=== PATIENT | male | born 2000 | race African-American/Black ===

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

== ENCOUNTER 2020-05-20 14:48 | Inpatient (IN) | payer OTHER ==
[~2020-05-20] VITALS: Ht 185.4 cm; Wt 81.6 kg
[~2020-05-20 14:48] MED LIST: ACETAMINOPHEN325 M1 PER TUBE; BUDESONIDE0.5 MG/2 M INH; CARDURA2 MG PER TUBE; DIVALPROEX SOD125 M1 PER TUBE; DIVALPROEX SOD125 MG PER TUBE; FAMOTIDINE 20 M20 MG PER TUBE; FLONASE 0.05%50 MCG NASAL; IPRAT-ALBUT 0.5-3 ML INH; LOPRESSOR50 MG PER TUBE; LORAZEPAM 2MG TA2 M1 PER TUBE; LORAZEPAM I2 MG/1 M2 PER TUBE; MIRALAX17 G1 PER TUBE; OXCARBAZEPINE300 MG PO; TRAMADOL 50 MG50 MG PER TUBE; TRANSDERM-SCOP1 EACH TRANSDERM; VISTARIL 25 MG25 M1 PER TUBE; XARELTO10 M1 PER TUBE
[2020-05-20 14:49] VITALS: BP 123/90
[2020-05-20 16:35] LABS: ABSOLUTE NEUTROPHILS 5.4 thou/uL (1.4-8.2); BASOPHILS 1.6 % (0.0-2.0); EOSINOPHILS 5.1 % (0.0-3.0); HEMATOCRIT 46.9 % (42.0-52.0); HEMOGLOBIN 15.6 gm/dL (14.0-18.0); LYMPHOCYTES 24.5 % (24.0-44.0); MCHC 33.2 g/dL (28.0-37.0); MCV 93.4 fL (80.0-100.0); MONOCYTES 10.8 % (1.0-8.0); PLATELET COUNT 332 thou/uL (150-400); RBC 5.02 mil/uL (4.50-6.00); RDW 14.1 % (10.5-14.5); WBC 9.4 thou/uL (4.0-11.0)
[2020-05-20 16:54] LABS: URINE BILIRUBIN 1+ (Negative); URINE BLOOD NEGATIVE (Negative); URINE CLARITY CLEAR; URINE COLOR YELLOW; URINE GLUCOSE-RANDOM* NEGATIVE (Negative); URINE KETONES 2+ (Negative); URINE LEUKOCYTES-REFLEX NEGATIVE (Negative); URINE NITRITE-REFLEX NEGATIVE (Negative); URINE PROTEIN (DIPSTICK) NEGATIVE (Negative); URINE SPECIFIC GRAVITY >= 1.030 (1.005-1.035); URINE UROBILINOGEN 0.2 E.U./dl (0.2-1.0)
[2020-05-20 17:06] LABS: SQUAMOUS None Seen /LPF (0-3)
[2020-05-20 17:07] LABS: BACTERIA-REFLEX 1-9 Few /HPF (None Seen); CASTS None Seen /LPF (None Seen); CRYSTALS None Seen /LPF (None Seen); URINE RBC None Seen /HPF (0-2); URINE WBC-REFLEX 0-5 Rare /HPF (0-5)
[2020-05-20 17:10] LABS: AMP/METHAMP Negative (Negative); BARBITURATES Negative (Negative); BENZODIAZEPINES Negative (Negative); COCAINE Negative (Negative); METHADONE Negative (Negative); OPIATES Negative (Negative); PCP Negative (Negative)
[2020-05-20 17:32] LABS: ANION GAP 21 mmol/L (7-16); BUN 20 mg/dL (7-18); CALCIUM 10.1 mg/dL (8.5-10.1); CHLORIDE 102 mmol/L (98-107); CO2 17 mmol/L (21-32); CREATININE 1.2 mg/dL (0.7-1.3); GLUCOSE 103 mg/dL (74-106); POTASSIUM 4.4 mmol/L (3.5-5.1); SODIUM 140 mmol/L (136-145)
[2020-05-20 17:39] LABS: ALBUMIN 4.4 g/dL (3.4-5.0); SALICYLATE < 2.8 mg/dL (2.8-20.0); SGOT 60 U/L (15-37); SGPT 48 U/L (16-63); TOTAL BILIRUBIN 0.5 mg/dL (0.2-1.0); TOTAL PROTEIN 8.4 g/dL (6.4-8.2)
[2020-05-21 07:13] LABS: CALCIUM 8.5 mg/dL (8.5-10.1); POTASSIUM 3.9 mmol/L (3.5-5.1)
[2020-05-21] MEDS ORDERED: SINGULAIR5 MG PO (11:18)
[2020-05-21] MEDS ORDERED: CLOZAPINE ODT100 MG PO (11:18)
[2020-05-21] MEDS ORDERED: ATIVAN1 M1 PO (11:19)
[2020-05-21] MEDS ORDERED: COLACE100 MG PO (11:19)
[2020-05-21] MEDS ORDERED: MELATONIN3 M1 PO (11:20)
[2020-05-21] MEDS ORDERED: LOPRESSOR50 MG PO (11:24)
[2020-05-21] MEDS ORDERED: CLOZAPINE ODT150 MG PO (11:24)
[2020-05-21] MEDS ORDERED: PROAIR HFA8.5 GM INH (11:24)
[2020-05-21] MEDS ORDERED: MAALOX ADVANCE355 M1 PO (11:25)
[2020-05-21] MEDS ORDERED: DEPAKOTE 250MG250 M1 PO (11:26)
[2020-05-21] MEDS ORDERED: ZYPREXA10 MG IM (11:27)
[2020-05-21 14:21] VITALS: BP 120/65
--- NOTE | 2020-05-21 14:30 | NUR ---
ATTEMPTED TO CALL REPORT AND WAS TOLD THE RN IS AT [facility], ATTEMPTED TO SPEAK WITH THE RFID TECHNICIAN FOR REPORT AND WAS PLACED ON HOLD FOR 5 MIN. PT SENT TO FLOOR WITHOUT REPORT
[2020-05-21 14:38] VITALS: BP 120/65
[2020-05-21 15:20] VITALS: BP 101/48
[2020-05-21 15:44] VITALS: BP 138/57
--- NOTE | 2020-05-21 16:01 | NUR ---
ASSUMED PT CARE UPON ADMISSION TO UNIT AROUND 1520. VITALS STABLE, PATIENT CAME WITH A SITTER. PATIENT WITH AUDITORY AND VISUAL HALLUCINATIONS. PATIENT SOMETIMES REDIRECTABLE. RIGHT CHEST PORT IN PLACE, ACCESSED IN ER, IV TEAM PAGED TO MAKE AWARE OF CHEST PORT. ADMISISON COMPLETED ALLOWED WITH PATIENT COOEPRATION. PATIENT NOT ATTEMPTING TO GET OUT OF BED OR BE VIOLENT WITH STAFF. ON ROOM AIR. REPORTED TO BE CONTINENT FROM ER NURSE. PATIENT ALERT TO PERSON.
--- NOTE | 2020-05-22 05:33 | NUR ---
Assumed pt care at 1900. Alert to self,with visual/auditory hallucinations on initial encounter.Sitter in room with pt. Pt threatening to hit on staff and took off from the room pacing down the preciado to other rooms,security called and pt assisited back to bed. After sometime pt again pacing down the preciado,attempted to go down the stairs,punching/kicking on the air;code green activated and pt assited back to room. IM Thorazine given with security's help. Pt moved to [facility] for safety reasons. Pt does mention SI in his conversation but denies SI on assessment. Dr. Taylor paged regarding pt's behavior and gave orders for Thorazine 25mg more,Janet LEIGH as well gave orders for Ativan 4mg IV. Ativan administered first,and pt calm down,no need for extra dose of Thorazine updated. Pt has a right chest portacath,flinches when flushed with no blood return. Needs to be pulled out 6mm,pt resting comfortably after meds,contact and service clerks supervisor notified advised to wait on pt to wake up inorder to pull it out a little bit. Pt been resting since medications given,sitter at the bedside.Will continue to monitor pt.
--- NOTE | 2020-05-22 15:16 | NUR ---
ASSUMED PT CARE THIS AM. PT REFUSING VITAL SIGNS TO BE TAKEN. SECURITY CALLED MULTIPLE TIMES IN ORDER TO GIVE PATIENT MEDICATION AND KEEP PATIENT ON UNIT. PATIENT NOT RECEIVING IV FLUIDS HE KEEPS GETTING OUT OF BED AND WILL NOT ALLOW NURSE TO GET CLOSE ENOUGH TO RENAL DIALYSIS TECHNICIAN TO IV FLUIDS. ON ROOM AIR. NO PAIN REPORTED OR NOTED. ROUGE SIFTER AND MILLER ON FLOOR MULTIPLE TIMES TO ASSIST IN GIVING MEDICATIONS WELL. PSYCHIATRIST AND HOSPITALIST AWARE OF PATIENTS BEHAVIOR AND WITNESSED THE BEHAVIORS. RESTRAINTS ORDERED FOR PATIENT. SITTER WITH PATIENT ENTIRE DAY.
--- NOTE | 2020-05-22 17:29 | HC ---
[facility] [place] [address] CONSULTATION Name: ANGE SMITH Room #: 461-P ADM IN M.R.#: [id number] Admission: 05/20/20 Attend Phys: Maverick See MD Discharge: Date of : 00 Report #: [id number] THIS REPORT FOR: cc: Burt Nielsen MD, Shyam MD Kerstein,Maverick Rowe DO ~ DATE OF SERVICE: 05/21/2020 INPATIENT PSYCHIATRY CONSULTATION The patient is being boarded in the ER. ATTENDING PHYSICIAN: Maverick See MD, of the hospitalist service. CONSULTING PSYCHIATRIST: Maverick Taylor DO REASON FOR CONSULTATION: Psychosis, rosita, concerns of history of neuroleptic malignant syndrome and probable mild rhabdomyolysis, currently. CHIEF COMPLAINT: The patient is yelling and in gross distress requiring 4-point restraint. HISTORY OF PRESENT ILLNESS: This is a 20-year-old black male who most recently is residing at the [facility], which handles severe persistently mentally ill. He was discharged to [facility] after a psychiatric hospitalization in [facility] in April 2020. Prior to the [facility] admission, he was living in a retirement. The patient was seen by Dr. Clements yesterday in the Emergency Room and the information which was limited, which the ER received stated he had been wandering the halls and yelling at [facility]. The patient endorsed SI. Does not have an active plan. The patient reported he has made previous suicide attempts and would hurt himself, was sent back to the facility. The patient says he has had these thoughts for "a while," but has not told anyone. He states he sees black spots, endorses he takes medication. We do not have a clear history of medication noncompliance, although the [facility] medications reveal a heavy psychiatric regimen. PAST PSYCHIATRIC HISTORY: Includes schizophrenia. PAST MEDICAL HISTORY: Includes catatonia, respiratory failure, neuroleptic malignant syndrome, encephalopathy, depression with psychosis, schizoaffective disorder, panic disorder. Medical history includes asthma. He has had a gastrostomy tube before. He has what appears to be a right subclavian port, also medical history of constipation and urinary retention. MEDICATIONS: The medications list, I should say is in somewhat state of debate [facility] [address] [place] [address] CONSULTATION Name: YAKOV SMITHDAVIDEHILL Room #: 461-P [facility] IN M.R.#: [id number] Admission: 05/20/20 Attend Phys: Maverick See MD Discharge: Date of : 00 Report #: [id number] as far as the medications. The best list we have here in the Emergency Room include montelukast 5 mg p.o. at bedtime, clozapine 100 mg oral dissolvable tablet in the morning, Colace 100 mg p.o. b.i.d., Ativan 1 mg p.o. t.i.d., melatonin 3 mg 3 tablets p.o. at bedtime that is 9 mg total, albuterol HFA 90 mcg inhaled 2 puffs p.r.n., then there is an additional evening dose of Clozaril, it looks like 300 mg p.o. at bedtime, metoprolol 50 mg 1 tab p.o. q. 12 hours, acetaminophen 325 mg 2 tabs p.o. q. 4 hours p.r.n., otherwise include PRNs of Maalox, benztropine, which is Yani Krishnan DR 250 mg p.o. b.i.d., and Zyprexa 10 mg IM or p.o. b.i.d. p.r.n. for psychosis, also interestingly on the medication list from [facility] are an EKG yearly, CBC weekly. The weekly Clozaril indicates he is still within the first 6 months of initiation of Clozaril. I have some records from [facility], which I will review as historical information for this patient, but I think it is fairly pertinent. Additionally, it looks like he has been a [facility] patient quite a bit. He has a history as well of a DVT, superficial cephalic vein thrombosis, also epilepsy. ALLERGIES: His allergies in our medical record here at [facility] are PENICILLINS, PREDNISONE, RISPERIDONE, SERTRALINE, TRAZODONE. I think some of these are extrapyramidal reactions that being said, we will do our diligence to avoid. From [facility]'s records, he is ALLERGIC TO HALDOL, RISPERDAL, WATERMELON, PENICILLIN, PREDNISONE, SERTRALINE, AND ZIPRASIDONE. ZIPRASIDONE WAS NOTED GENERATING NEUROLEPTIC MALIGNANT SYNDROME. ROS: unable to be obtained due to level of disorganization/psychosis SOCIAL HISTORY: No legal history. He is a betts of the public middleware administrator of the [place], [place], Vicente Myers. 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 He does have a history of encephalopathy from elevated ammonium levels for medications, does not drink alcohol. His IQ is 65 according to the [facility] records. In April, his hospitalization was noted to be due to multiple stressors at home and at least some mood dysregulation including agitation or aggressive behaviors. The only way he tends to cope with stressful situation was previously playing with [email or web address] game system and now he pastora by playing with his tablet and the phone, does not appear that he has other positive coping mechanisms. His self-destructive behavior in the past includes saying he is suicidal or running towards traffic just because he gets upset. He also has episodes of unawareness of his behavior. He has had multiple antipsychotic trials to treat his symptoms, but does not appear to help the agitation. The patient has poor communication skills. It is also noted that he [facility] [address] [place] [address] CONSULTATION Name: ANGE SMITH Room #: 461-P ADM IN M.R.#: [id number] Admission: 05/20/20 Attend Phys: Maverick See MD Discharge: Date of : 00 Report #: [id number] was discharged from [facility] on 04/19/2020 to a retirement from [facility]. He was continuing to show disorganized behavior and admitted to [facility]. The note I am reading is from 04/28/2020 so there may have been two [facility] hospitalizations in April of this year. LABORATORY DATA: Here at [facility] H and H 15.6 and 46.9, white count 9.4, platelet count 332, increased monocyte percentage to 10.8 and increased eosinophil percentage to 5.1. Chemistries include sodium 136, potassium 3.9, chloride 104, bicarbonate 18, anion gap 14, BUN 13, creatinine 1.0, estimated GFR 115, glucose 100, calcium 8.5. CK of 2284, which supportive of the mild rhabdomyolysis. He is getting IV fluid hydration. TSH is 0.679. Urinalysis showed 2+ ketones, 1+ bilirubin, 1-9, which is few bacteria. Urine drug screen was negative. Alcohol negative. Acetaminophen negative. Salicylate is negative. COVID-19 PCR was negative. Last head CT was done on 08/03/[address] Galvez and there were no acute findings there, which is common with young schizophrenics basically having a normal brain scan. PHYSICAL EXAMINATION: VITAL SIGNS: This a.m. in the Emergency Room where he is being boarded are temperature 36.4, pulse 121, respiratory rate 13, BP 120/65, O2 sat 98%. MENTAL STATUS EXAMINATION: He is agitated, flailing, shadowboxing security responding and placed in 4-point restraints during my initial evaluation. It is to note, the patient was not responsive to questioning and cannot give any reasonable reliable medical or psychiatric history. Attention impaired. Concentration impaired. Speech, yelling frequently. Thought process nonlinear. Thought content, no specific logical focus of his thought. Significant psychomotor agitation or psychomotor retardation. I was not able to question reliably for suicidality or homicidality, it is based on Dr. Clements' findings. We will assume he still is having suicidal ideations and needs protection, likelihood of visual hallucinations is as well given the difficulty of this mental status exam. Insight impaired, judgment impaired. Fund of knowledge below average. Intellectual disability range as documented at [facility]. FORMULATION: A 20-year-old black male, betts of public middleware administrator [place], [place] brought to [facility] from his nursing facility for decompensated behavior. DIAGNOSES: At this time, schizophrenia, likely normal onset, mild intellectual disability. The patient has some historical medical issues including requiring a PEG tube and subclavian port right now as well. He is dealing with a mild rhabdomyolysis, likely brought on by his agitation. RECOMMENDATIONS: At this time, as much as possible, minimize use of restraint, extraneous stimuli. Unfortunately, this is difficult in the Emergency Room. Additionally, we are facing a number of challenges with medicating him including [facility] [place] [address] CONSULTATION Name: ANGE SMITH Room #: 461-P ADM IN M.R.#: [id number] Admission: 05/20/20 Attend Phys: Maverick See MD Discharge: Date of : 00 Report #: [id number] his degree of agitation and need to give an IM versus p.o. I would ideally like to start giving him 50 mg of chlorpromazine 3 times a day, which can be backed up through intramuscular injection. I will be setting this up while he is boarding in the Emergency Room. A person should take note that this regimen may not readily be transferred to a medical bed if he has moved there. Additionally, unless we get kings and he clears rapidly, I expect this young man to require inpatient adult psychiatric hospitalization. I would recommend that he go back to [facility] units. I will follow along with you. I did this consultation emergently per the Emergency Room's request today. Time spent on this case is at least 60 minutes, greater than 50% of time was review of records and coordination of care. I have discussed my plan with Dr. See. <ELECTRONICALLY SIGNED> By: Maverick Taylor, 05/22/20 1729 [id number] Maverick Taylor, DO /nt
[2020-05-22 19:48] LABS: HEMATOCRIT 39.7 % (42.0-52.0); MCH 31.1 pg (26.0-34.0); MCHC 33.5 g/dL (28.0-37.0); MCV 92.9 fL (80.0-100.0); RBC 4.27 mil/uL (4.50-6.00); RDW 14.4 % (10.5-14.5); WBC 6.3 thou/uL (4.0-11.0)
[2020-05-22 19:53] LABS: HEMOGLOBIN 13.3 gm/dL (14.0-18.0)
[2020-05-22 20:00] LABS: CALCIUM 8.5 mg/dL (8.5-10.1); CREATININE 1.3 mg/dL (0.7-1.3); POTASSIUM 4.2 mmol/L (3.5-5.1)
[2020-05-22 21:06] VITALS: BP 134/75
--- NOTE | 2020-05-23 04:57 | NUR ---
ASSUMED CARE OF PT AR SHIFT CHANGE. PT IS ALERT BUT ONLY ORIENTED TO PERSON. PT IS ON 1:1 OBSERVATION. PT WAS AGITATED AND COMBATIVE AT THE BEGINNING OF THE SHIFT. PT APPEARS TO BE HAVING VISUAL AND AUDITORY HALLUCINATIONS. PT TOOK HS PO MEDS WITH APPLEJUICE. PT WAS ABLE OT CALM DOWN AND SLEEP PART OF THE SHIFT. VSS AND NO S/S OF ACUTE DISTRESS. WILL CONTINUR TO MONITOR.
[2020-05-23 06:56] VITALS: BP 137/78
--- NOTE | 2020-05-23 07:20 | EKG ---
[place] [address] [address] 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: J LUIS : 2000 Requested By: Petey Clements Order Number: [id number] MD: Abel Wood Measurements Intervals [place] Rate: 127 P: 76 NJ: 137 QRS: 67 QRSD: 76 T: 65 QT: 283 QTc: 412 Interpretive Statements Sinus tachycardia LAE, consider biatrial enlargement J Point elev, probable normal early repol pattern No previous ECG available for comparison Electronically Signed On 05-23-2020 7:20:17 CDT by Abel Wood [email or web address] <ELECTRONICALLY SIGNED> By: Abel Wood MD, [facility] 05/23/20 0720 165 [id number] Abel Wood MD, FACC /EPI
[2020-05-23 10:05] VITALS: BP 138/87
[2020-05-23 10:11] VITALS: BP 142/89
--- NOTE | 2020-05-23 11:32 | NUR ---
Patient very restless and agitated. Kicked shower chair and broke it. Patient appears to be talking to himself and reaching for objects that are not there. Patient is compulsive and hops out of the bed and is unsteady on feet. PRN medication given and patient on 1:1 sitter.
--- NOTE | 2020-05-23 13:53 | NUR ---
PT ADMITTED RELATED TO AMS, AGITATED DELIRIUM, AND RHABDO. CM REVIEWED CHART AND SPOKE WITH CARE TEAM. CM CALLED AND SPOKE WITH BEATRIZ MCKEON WITH THE PA'S OFFICE THIS AM. HE INDIATED THAT PT HAD BEEN AT [facility] FOR SHORT TERM CARE STEM LEAD FORMER. HE INDICATED THAT PT HAD BEEN AT [facility] AND THAT THEY WOULD BE AGREEABLE WITH INPATIENT PSYC STAY AGAIN IF INDICATED. [facility] WOULD BE FIRST CHOICE. HE INDICATED THAT PLAN IS TO HAVE PT ASSESSED FOR POSSIBLE PLACEMENT IN A PRISON SETTING. CARING HANDS MAY COME AND ASSESS DURING STAY. CM FOLLOWING REGARDING DC PLANNING. PT WITH 1:1 SITTER OF THIS NOTE. CM FOLLOWING REGARDING DC PLANNING.
[2020-05-23 14:31] LABS: HEMATOCRIT 41.7 % (42.0-52.0); HEMOGLOBIN 13.7 gm/dL (14.0-18.0); MCHC 32.9 g/dL (28.0-37.0); MCV 94.2 fL (80.0-100.0); RBC 4.43 mil/uL (4.50-6.00); RDW 14.4 % (10.5-14.5); WBC 5.2 thou/uL (4.0-11.0)
[2020-05-23 14:56] LABS: CALCIUM 8.5 mg/dL (8.5-10.1); CREATININE 0.9 mg/dL (0.7-1.3)
--- NOTE | 2020-05-23 17:18 | NUR ---
RN ASSUMED PT'S CARE AT 0700AM, PT IS CONFUSED AND AGITATION AT TIME, PT IS HIGH FALL RISK, PT IS ON 1:1 CAN SITTER , RN HAS CALLED DR EGAN TO REPORT PT'S AGITATION, NEW ORDER RECEIVED, PT 'S AGITATION HAS IMPROVED, PT STARTS IV NS @ 100ML/HR,
[2020-05-23 20:05] VITALS: BP 136/86
--- NOTE | 2020-05-24 03:54 | NUR ---
ASSUMED CARE OF PT AT SHIFT CHANGE. PT IS AOX1 AND NEEDS MUST BE ANTICIPATED. 1:[address] EXTRA SNACKS PROVIDED. PT WAS CALMER THIS SHIFT COMPARED TO THE NIGHT BEFORE. PT TOOL ALL HS MEDS WHOLE WITH WATER. IVF CONTINUED. PT WAS ABLE TO GET COMFORTABLE AND SLEEP PART OF THE SHIFT. VSS AND NO S/S OF ACUTE DISTRESS. WILL CONTINUE TO MONITOR FOR CHANGES.
[2020-05-24 08:00] VITALS: BP 144/99
--- NOTE | 2020-05-24 11:58 | NUR ---
CM RECEIVED PC FROM FUEL HOUSE ATTENDANT AT [facility] WHO INDICATED THAT HE FOLLOWS PT'S CASE IN COMMUNITY NAMED [place]. HE INDICATED THAT PT HAS A ZOOM MEETING TODAY AT 1400 AND THAT HE WOULD LIKE TO COME AND HAVE PT PARTICIPATE. CM NOTIFIED PSYCHIATRIST AND CONFERENCE PRODUCER AND THEY ARE AWARE AND AGREEABLE. CM FOLLOWING REGARDING ANTICPATED TRANSFER FOR INPATIENT PSYC STAY ONCE MEDICALLY STABLE.
[2020-05-24 14:52] VITALS: BP 149/109
--- NOTE | 2020-05-24 19:25 | NUR ---
Assumed pt care this am, VS stable, heat rate is tachy. Has a 1:1 sitter, no issues with behaviour. Diet and medications are tolerated well. IV fluids infusing. POC followed with no lsigns or verbalizations of distress noted. Though auditory and wisual hallucinations are still present. Endorsed to the night nurse.
[2020-05-24 20:20] VITALS: BP 140/100
--- NOTE | 2020-05-25 05:48 | NUR ---
Assumed pt care at 1900. A/OX3 on initial assessment,VSS.Denied pain. Has visual/auditory hallucinations on and off. Doesn't answer when assessed for SI and starts cursing using the "F word". Pt cooperative with staff,took meds w/o problems,IVF infusing via Right port without problems. Sitter at the bed side,pt able to get some rest at night. Will continue to monitor pt.
[2020-05-25 07:48] VITALS: BP 138/93
--- NOTE | 2020-05-25 11:10 | NUR ---
CM SPOKE WITH PT'S CM AT [facility] THIS AM. DR. GRANT AT [facility] ALSO CALLED AND PEFT HIS PHONE NUMBER FOR DR. EGAN TO REACH OUT TO COORDINATE CARES. CM SPOKE WITH DR. EGAN AND FORWARED HIS VM. CM CALLED [facility] AND LEFT VM ON BED PAGER. CM TO FAX REFERRAL TO [facility] FOR REVIEW FOR POSSIBLE ADMISSION.
--- NOTE | 2020-05-25 13:39 | NUR ---
Assumed pt care at 7am.Pt in bed sleeping on and off early this shift. Assessment completed .vss.Pt took meds and ate 75% of breakfast.Sitter at bs at alltimes monitoring the pt.Immediately after lunch,pt walked several times round the unit with sitter assistance.Pt up to br as needed to void. No agitation or inappropriate behavior noted at present.Will continue to monitor.
[2020-05-25 17:18] VITALS: BP 149/87
--- NOTE | 2020-05-26 04:13 | NUR ---
AT THE START OF THE SHIFT PT WAS AGITATED, HOSTILE AND EXPERIENCING AUDITORY AND VISUAL HALLUCINATION HE WAS YELLING OUT AND PUNCHING THE AIR IN THE ROOM. PACING IN ROOM AND TELLING STAFF TO STAY AWAY FROM HIM. COOPERATIVE TO TAKING MEDICATIONS. HAS BEEN LYING WITH EYES CLOSED SINCE HS MEDICATIONS GIVEN DIRECTED. ROOM AIR. VOIDED PER TOILET WITH SBA TO THE BR. SITTER IN ROOM. DOCUMENTATION COMPLETED ON OBSERVATION SHEET. NO BM THIS SHIFT. FALL AND SI PRECAUTIONS IMPLEMENTED, CALL LIGHT IS WITHIN REACH. WILL CONTINUE TO MONITOR.
[2020-05-26 08:15] VITALS: BP 148/103
[2020-05-26 09:25] VITALS: BP 148/103
--- NOTE | 2020-05-26 16:12 | NUR ---
nubia f/u with pt's terrance delacruz. terrance joyner will be back in office on saturday and he believes the doctor may be able to get pt a bed [facility] [place] [facility] [place]. nubia informed terrance she would proceed with finding acute psyche hospital. nubia sent referral to [facility].
[2020-05-26 16:15] VITALS: BP 148/103
--- NOTE | 2020-05-26 18:16 | NUR ---
PT CARE ASSUMED AT 0700. ASSESSMENTS CHARTED. MEDICATIONS CHARTED. RT CHEST PORT, 0.9% NS. PT OCCASSIONALLY SEVERELY AGITATED; LORAZEPAM WORKS WELL. SUICIDAL IDEATION. SITTER.
[2020-05-26 22:36] VITALS: BP 144/49
[2020-05-27 04:54] LABS: HEMATOCRIT 38.3 % (42.0-52.0); HEMOGLOBIN 12.3 gm/dL (14.0-18.0); MCH 30.8 pg (26.0-34.0); MCHC 32.2 g/dL (28.0-37.0); MCV 95.7 fL (80.0-100.0); RDW 15.1 % (10.5-14.5); WBC 4.5 thou/uL (4.0-11.0)
--- NOTE | 2020-05-27 05:08 | NUR ---
VSS-AFEBRILE. LOUD, YELLING, AND HAVING AUDITORY AND VISUAL HALLUCINATIONS EARLY IN SHIFT, AND THEN WAS ABLE TO FALL ASLEEP FOR THE NIGHT. NO C/O PAIN. SITTER REMAINS 1:1 FOR OBSERVATION. SI PRECAUTIONS REMAIN IN PLACE.
[2020-05-27 09:22] VITALS: BP 135/95
--- NOTE | 2020-05-27 11:41 | NUR ---
ON-GOING ASSESSMENT: CM REVIEWED CHART. PT IS AWAITING INPATIENT PSYCH PLACEMENT. CM REACHED OUT TO [facility] THIS AM AND SHE STATES THEY ARE FULL AND ANTICIPATE BEING FULL LIKELY THROUGH THE WEEKEND. CM ALSO CONTACTED [facility] WHO REPORTS THEY ARE AT CAPACITY AT THIS TIME. CM ALSO CONTACTED [facility] AND FAXED REFERRAL TO THEM AT [phone]. [facility]:[phone] [facility]:[phone] [facility]:[phone]
--- NOTE | 2020-05-27 13:38 | NUR ---
Nutrition: pt admitted with AMS and seen for LOS. PMH: catatonia, PEG, schizophrenia, psychosis, depression. Familiar with pt from admit last summer however pt was solely on tube feeds at that time. Pt has been eating orally at facility and here very well, 75-100% of meals on regular diet with double portions (as pt does at facility-due to hypermetabolism? per nsg). Pt's executive secretary social welfare present during visit and reports pt weights last year ~160#, now up to 180# which he reports has been due to eating too much junk food over the past few months. Offered basic suggestions of foods to limit if possible to prevent unwanted weight gain. Currently pt BMI 23.8 which is WNL. Psych following and pt requiring a sitter. Low nutrition risk.
[2020-05-27 14:53] VITALS: BP 149/98
[2020-05-27 15:37] VITALS: BP 193/95
[2020-05-27 18:20] VITALS: BP 149/98
--- NOTE | 2020-05-27 20:34 | NUR ---
Assumed care of pt this morning on arrival. Pt is A&O x4 but has dilusional and outbursts. Pt has no skin issues and does not like to be touched while getting assessed. Pt abulates to RR. Call light placed near the pt. Assessment otherwise unremarkable.
--- NOTE | 2020-05-27 20:35 | NUR ---
Assumed pt care this am, with a 1:1 sitter. VS stable, took a shower today. POC followed with no signs of distress. Auditory and visual hallucinations noted, pt was aggitated tolards the end of the shift, medications given as per emar. Endorsed to the night nurse.
[2020-05-27 21:37] VITALS: BP 117/68
--- NOTE | 2020-05-28 07:44 | NUR ---
VSS-AFEBRILE. RESTED WELL THROUGH NIGHT WITH FEW NEEDS. REFUSED NURSE TO DRAW MORNING LABS. 1:[address]
[2020-05-28 08:30] VITALS: BP 158/111
[2020-05-28 09:43] LABS: ALBUMIN 2.8 g/dL (3.4-5.0); CALCIUM 7.4 mg/dL (8.5-10.1); CREATININE 0.8 mg/dL (0.7-1.3); MAGNESIUM 1.4 mg/dL (1.8-2.4); PHOSPHORUS 2.6 mg/dL (2.6-4.7); TOTAL BILIRUBIN 0.2 mg/dL (0.2-1.0); TOTAL PROTEIN 5.9 g/dL (6.4-8.2)
[2020-05-28 09:44] LABS: POTASSIUM 3.7 mmol/L (3.5-5.1)
[2020-05-28 10:45] LABS: % SATURATION 24 % (20-39); IRON 59 ug/dL (65-175); TIBC 242 ug/dL (250-450)
--- NOTE | 2020-05-28 16:39 | NUR ---
ASSUMED CARE OF PT AT 0700 THIS MORNING. PT WAS ASLEEP ON DURING REPORT AND RESTING COMFORTABLY. PT SLEPT VERY LITTLE OVERNIGHT. PT IS HAVING CONSISTANT VISUAL AND VERBAL DELUSIONS. PT WILL RESPOND APPROPRIATELY WHEN ASKED QUESTIONS. EYES ARE PERRLA, SLUGGISH RESPONSE DUE TO MEDS. SKIN W/D/P, LUNGS CLEAR IN ALL CAMEJO, CR< 3SEC. DISTAL PULSES PRESENT, ASSESSMENT OTHERWISE UNREMARKABLE. MEDPORT IN UPPER RIGHT CHEST. CALL LIGHT AND OTHER ESSENTIALS WITHIN REACH.
[2020-05-29 03:05] LABS: HEP B SURFACE Ab(ANTI-HBS Reactive (()); HEPATITIS B SURFACE AG Negative (Negative); HEPATITIS C VIRUS AB 0.1 (0.0-0.9)
--- NOTE | 2020-05-29 03:11 | NUR ---
PT IS A/O X4 AND IS UP WITH SBA. REMAINS ON OBSERVATION FOR SI. PT SEEMED IN GOOD SPIRITS THIS NOC WITH LAUGHTER AND NO EMOTIONAL OUTBURSTS OF ANGER. ROOM AIR. VOIDS PER TOILET, NO BM THIS SHIFT. MEDS GIVEN PER MAR. FALL PRECAUTIONS IN PLACE, CALL LIGHT IS WITHIN REACH. WILL CONTINUE TO MONITOR.
[2020-05-29 03:56] LABS: D-DIMER 1.72 ug/mLFEU (0.19-0.50); INR 1.2; PROTIME 12.6 Seconds (9.3-11.4)
[2020-05-29 05:24] LABS: ABSOLUTE NEUTROPHILS 1.3 thou/uL (1.4-8.2); BASOPHILS 0.9 % (0.0-2.0); EOSINOPHILS 8.1 % (0.0-3.0); HEMATOCRIT 39.2 % (42.0-52.0); HEMOGLOBIN 12.7 gm/dL (14.0-18.0); LYMPHOCYTES 40.4 % (24.0-44.0); MCH 31.1 pg (26.0-34.0); MCHC 32.4 g/dL (28.0-37.0); PLATELET COUNT 250 thou/uL (150-400); POLYS 41.6 % (36.0-66.0); RBC 4.08 mil/uL (4.50-6.00); RDW 14.7 % (10.5-14.5)
[2020-05-29 05:34] LABS: CALCIUM 8.3 mg/dL (8.5-10.1); CREATININE 0.8 mg/dL (0.7-1.3); MAGNESIUM 2.4 mg/dL (1.8-2.4); PHOSPHORUS 4.8 mg/dL (2.6-4.7); POTASSIUM 4.1 mmol/L (3.5-5.1)
[2020-05-29 07:00] VITALS: BP 130/85
[2020-05-29 16:00] VITALS: BP 158/97
--- NOTE | 2020-05-29 19:13 | NUR ---
PT ALERT AND ORIENTED TO SELF AND PLACE. PT VISUALLY AND AUDITORY HALLUCINATING. PT JUMPING OUT OF BED, PACING AROUND THE ROOM, WALKING IN THE HALLWAYS. PT NOT LISTENING TO ANY SUGGESTIONS AND DIRECTIONS AT THIS MOMENT. PT SEEMS UPSET AND PACING IN THE HALLWAYS. NIGHT RN MADE AWARE ABOUT PT'S MOOD. NIGHT SITTER AT BEDSIDE AND GIVEN REPORT ABOUT THE SAFETY MEASURES TO BE TAKEN WITH THE PATIENT.CONTINUE TO MONITOR PT IS IMPULSIVE AND AGITATED. PT HAS BEEN REFUSING IM MEDICATIONS.
[2020-05-29 19:17] VITALS: BP 151/101
--- NOTE | 2020-05-30 02:24 | NUR ---
ASSUMED CARE OF PT AT SHIFT CHANGE. PT AOX2 AND CAN BE IMPULSIVE. 1:[address] PT DENIED PAIN, NAUSEA OR SOA. PT DOES APPEAR TO HAVE AH, VH AND SI. ASSESSMENT CHARTED. PT TOOK ALL HS MEDS AND WAS ABLE TO SLEEP PART OF THE SHIFT. NO S/S OF ACUTE DISTRESS. WILL CONTINUE TO MONITOR.
[2020-05-30 06:11] LABS: ALBUMIN 3.4 g/dL (3.4-5.0); CALCIUM 8.6 mg/dL (8.5-10.1); CREATININE 0.9 mg/dL (0.7-1.3); PHOSPHORUS 4.9 mg/dL (2.5-4.9); POTASSIUM 5.2 mmol/L (3.5-5.1); TOTAL BILIRUBIN 0.2 mg/dL (0.2-1.0)
[2020-05-30 08:20] VITALS: BP 130/84
--- NOTE | 2020-05-30 10:23 | NUR ---
ASSUMED PT CARE THIS AM. PT VSS, A&OX3. PATIENT COOPERATIVE WITH STAFF, TOOK ALL MEDS OTHER THAN LACTULOSE. PATIENT HAS A SITTER IN PLACE. PORT TO RIGHT CHEST. PATIENT REMAINS CONTINENT. PATIENT VOMITED ONCE, NOTIFIED DOCTOR OF THIS. REPORTS NO NAUSEA OTHERWISE. ON ROOM AIR. NO PAIN NOTED.
--- NOTE | 2020-05-30 11:40 | NUR ---
DARIUS CONTACTED AMADOU, JÚNIOR EDWARD NO BEDS AVAIL. DARIUS SPK W/PT'S GEORGI MCCOY, WHO STATED HE CONTACTED THE ADMITTING DOCTOR AT [facility] AND LEFT VM TO SEE IF THERE WAS ANY WIGGLE ROOM. PER GEORGI PT HAS [facility]. PT LIV[facility] BUT WAS STAYING A [facility] "WASNT READY." DARIUS S/W MOLINA AT [facility], 0 BEDS AVAIL. DARIUS FAXED REFERRALS TO [facility] [phone] AND [facility], [facility] . PT WILL HAVE ULTRASOUND OF ABDOMEN D/T ELEVATE AMONNIA LEVELS.
[2020-05-30 13:55] LABS: ABSOLUTE NEUTROPHILS 4.4 thou/uL (1.4-8.2); EOSINOPHILS 4.2 % (0.0-3.0); HEMATOCRIT 43.8 % (42.0-52.0); HEMOGLOBIN 14.1 gm/dL (14.0-18.0); LYMPHOCYTES 23.4 % (24.0-44.0); MCH 30.7 pg (26.0-34.0); MCHC 32.3 g/dL (28.0-37.0); MCV 95.2 fL (80.0-100.0); MONOCYTES 7.1 % (1.0-8.0); PLATELET COUNT 300 thou/uL (150-400); POLYS 64.3 % (36.0-66.0); RBC 4.61 mil/uL (4.50-6.00); RDW 14.7 % (10.5-14.5); WBC 6.9 thou/uL (4.0-11.0)
--- NOTE | 2020-05-31 05:36 | NUR ---
Assumed pt care at 1900. A/OX3,VSS.Denies pain on assessment.Declines answering any questions on SI/HI when assessed. Pt having visual/auditory hallucinations on and off. Pt woke up at around 0300,very loud and pacing the hallway uncontrollably and hard to redirect;security notified,IM Ativan given but pt continued to yell,blurb writer approached pt and informed him it's too early to be yelling out other pt's are trying to sleep he should tone it down or get more meds;pt begging not to get another shot and stopped yelling. Pt just completed a shower at this time w/HYDROPULPER OPERATOR supervision. Will continue to monitor pt.
[2020-05-31 07:15] VITALS: BP 156/90
--- NOTE | 2020-05-31 12:03 | NUR ---
[facility] DECLINED TRANSFER. CM CALLED SIGNITURE. CM REFAXDED REFERRAL FOR REVIEW. [facility] IS AT CAPACITY AT THIS TIME. CM CALLED [facility] AND THEY INDICATE THAT THEY WOULD NEED SPEAK TO THEIR CMT'S HE REQUIRES EXTRA STAFF AND THEY ARE CURRENTLY. CM FAXED CLINICAL INFO OVER TO THEM AGAIN. CM STILL TRYING TO FIND INPATIET PSYC PLACEMENT.
[2020-05-31 16:40] VITALS: BP 124/83
--- NOTE | 2020-05-31 20:01 | NUR ---
Received awake on bed. Due medications given as prescribed, able to swallow meds w/o difficulty. On room air. Vital signs stable. On MS, not on telemetry; no complaints and signs of chestp ain, crushing sensation and heaviness. On regular diet- tolerating well; double portions given; no nausea, no vomiting and no abdominal pain noted- snacks given. Continent of bowel and bladder, able to go to the toilet. With sitter at bedside; pt still having auditory and visual hallucinations; loud- no episodes of aggression noted as per sitter. Still a/w stool for occult blood- sitter informed. With R chest port- saline locked. Still a/w placement- CM aware. Pt with orders for K this AM, pt became agitated when spar cap beveler unable to draw blood this am, to re-try again this PM- Dr Dela Cruz this AM. No complains and signs of pain noted during assessment. To continue monitoring patient.
--- NOTE | 2020-06-01 05:46 | NUR ---
VSS-AFEBRILE. 1:1 SITTER REMAINS AT BEDSIDE. SLEPT MOST OF NIGHT, AWOKE FOR A COUPLE OF HOURS AND LISTENED TO MUSIC AND AMBULATED AROUND ROOM. NEEDS FREQUENT AND ASSERTIVE REMINDERS TO KEEP MUSIC TO APPROPRIATE LEVELS, OTHER PATIENTS ARE SLEEPING. CONTINUE TO HAVE CONVERSATIONS OUT LOUD THAT DONT MAKE SENSE, TALKS A LOT TO SELF, AND CAN GET LOUD AND BOISTEROUS. COOPERATIVE THIS SHIFT WITH ALL MEDICATIONS AND INTERVENTIONS. 1:1 MONITORING WITH BEDSIDE SITTER REMAINS IN PLACE. VOICED NO IDEAS OF SELF HARM OR IDEATION OF HURTING OTHERS.
[2020-06-01 08:44] VITALS: BP 156/106
--- NOTE | 2020-06-01 12:07 | NUR ---
TODAY CM CALLED: [facility]:9:37 THEY HAVE NO BEDS SIGNITURE:9:39 THEY HAVE NO BEDS TM:9:41 CALLED BACK AT 11:36 SPOKE WITH [facility] NO BEDS SENT REFERRAL TO [facility] FOR REVIEW-AWAITING RESPONSE. PT'S CM FROM [facility]ITED CM UPDATED HIM ON [facility]. EGAN TO REACH OUT TO PA OFFICE REGARDING PROVIDING UPDATES TO PT'S FAMILY. CM FOLLOWING REGARDING DC PLANNING.
--- NOTE | 2020-06-01 16:15 | NUR ---
FAXED CLINICAL UPDATE TO [facility] RECEIVED CONFIRMATION AND LEFT MSG WITH CHAPITO JUNG) AT FACILITY THAT WE ANTICIPATE DC SATURDAY 06/03.
--- NOTE | 2020-06-01 19:16 | NUR ---
PT A&O, VSS, NO APPARENT PAIN. PATIENT PACES THE FLOOR AND LIKES TO WALK HALLWAYS. PATIENT HAS RIGHT CHEST PORT, DRAWS BLOOD, SALINE LOCKED. PATIENT HAD MOMENTS WHERE HE BECAME AGITATED AND SECURITY HAD TO BE CALLED. PATIENT PULLED AT BATHROOM RED CORD AND SNATCHED PEN FROM EZDOCTOR, ABLE TO RECOVER AND CALM HE DOWN. PATIENT WOULD CONSTANTLY PUNCH THE AIR AND COME CLOSE TO EZDOCTOR WHO WAS ONE ON ONE SITTING. PSYCH DOCTOR CALLED AND EXTRA MEDICATION ORDERED AND GIVEN. PATIENT ROOM AIR AND NO SIGNS OF DISTRESS. PATIENT ENJOYS SNACKS AND TAKES MEDICATION OK AND CAN REDIRECT PATIENT. WILL CONTINUE TO MONITOR.
[2020-06-01 19:37] VITALS: BP 127/97
[2020-06-02 06:56] VITALS: BP 137/89
--- NOTE | 2020-06-02 11:58 | NUR ---
CM CALLED CHAPITO ROGEL AT [facility] TWICE THIS AM AND LEFT VOICEMAILS REGARDING PT RETURNNING THERE TOMORROW SATURDAY. CM CALLED AND SPOKE WITH BEATRIZ MCKEON WITH PT'S OFFICE HE IS AWARE AND AGREEABLE WITH PLAN AND JUST NEEDS NOTIFIED OF PT'S DISCHARGE WHEN IT OCCURS. BEATRIZ INDICATED HE WOULD ALSO REACH OUT TO [facility] ABOUT PT'S RETURN. CM ATTEMTPED PC TO ADMISSIONS LIAISON MARYSE WITH [facility] WELL AND IT WENT TO VOICEMAIL . CM FOLLOWING REGARDING ANTICIPATED DC TOMORROW BACK TO [facility].
--- NOTE | 2020-06-02 12:04 | NUR ---
ASSUMED PT CARE THIS AM. PT VSS, A&OX4. PATIENT HAS A SITTER. HAS BEEN COOPERATIVE WITH STAFF. TOOK MORNING MEDS WITHOUT ISSUE. ON ROOM AIR. NO PAIN REPORTED. HAVING AUDITORY AND VISUAL HALLUCINATIONS. TOLERATING DIET WELL AND ADEQUATELY HYDRATING. GIVEN PRN MED FOR AGITATION, WORKING WELL.
--- NOTE | 2020-06-03 02:38 | NUR ---
PT IS A/O X4 AND AT TIME HAS AUDIO AND VISUAL HALLUCINATIONS. RESTLESS AND PACES AT TIMES. SITTER IN ROOM WITH PT ON ONE TO ONE OBSERVATION. HAD ONE EPISODE OF NAUSEA AND VOMITTING THIS EVENING. CONTINUES ON ROOM AIR. BP LOW. HELD BP MEDICATION AT BEDTIME. ULTRASOUND DONE OF EXTREMITIES THIS NOC. AT THIS TIME, PT IS LYING IN HIS BED AND APPEARS TO BE SLEEPING. WILL CONTINUE TO MONITOR.
[2020-06-03 08:08] VITALS: BP 153/101
[2020-06-03] MEDS ORDERED: LORAZEPAM 1 MG T1 MG PO (10:04)
[2020-06-03] MEDS ORDERED: BENADRYL ALLERG25 MG PO (10:04)
[2020-06-03] MEDS ORDERED: OLANZAPINE ODT5 MG PO ×3 (10:04)
[2020-06-03] MEDS ORDERED: CHLORPROMAZINE100 MG PO (10:04)
--- NOTE | 2020-06-03 10:41 | NUR ---
VASCULAR ACCESS WILL NOT CHANGE THE PORT ACCESS NEEDLE TODAY DISCHARGE AND NEEDLE REMOVAL IS PENDING TODAY.
--- NOTE | 2020-06-03 11:57 | NUR ---
FAXED DISCHARGE ORDERS, SUMMARY AND NEGATIVE COVID RESULT (06/02/20) TO [facility]. WILL CONFIRM THEY RECEIVED. TRANSPORTATION ARRANGED BY FACILITY FOR 1:00-1:30 PER CALDERON/ANG. [facility] P [phone]; FAX [phone], ATTN: NILTON
--- NOTE | 2020-06-03 12:29 | NUR ---
beside rn called [facility] to give report, when [facility] asked for cm. per [facility] he "doesnt feel comfortable" accepting the pt back to their facility d/t pt "pacing...still has a sitter...halluncinating." cm informed pt bedside rn of this updated info. nubia discussed this with cm manager inventory, sherine, who stated, to tell [facility] to have [facility] medical records receptionist contact dr. dotson/ nubia lft vm for [facility] to contact nubia.
--- NOTE | 2020-06-03 12:39 | NUR ---
cm reached out to [facility] and [facility], both, denied d/t capacity. cm sent referral to signature. [phone].
--- NOTE | 2020-06-03 12:59 | NUR ---
pt's cm, terrance, stated he spoke with [facility], "they know catarino very well, and his acuity level is too high."
--- NOTE | 2020-06-03 16:38 | NUR ---
ASSUMED PT CARE THIS AM. PT HAS A SITTER. PT ON ROOM AIR. PT IS PACING AROUND THE ROOM AND HAS AUDIO AND VISUAL HALLUCINATION THIS AM. PT TOLERATED MED WELL. PT IS COVID NEGATIVE. PT IS CURRENTLY SLEEPING ON THE BED, BED ON THE LOWEST POSITION, CALL LIGHT WITHIN REACH. WILL CONTINUE TO MONITOR PT. FOLLOW POC.
[2020-06-03 18:19] VITALS: BP 156/104
--- NOTE | 2020-06-04 03:19 | NUR ---
PT IS A/O X4 AND IS UP SBA WITH A SITTER IN ROOM. IS ON ROOM AIR. VSS. HTN. VOIDS PER TOILET. NO BM THIS SHIFT. NO SKIN ISSUES NOTED. PLEASANT AND COOPERATIVE THIS NOC. ONLY REQUEST WAS FOR HIS NIGHT MEDS AND STATED HE WANTED TO GO TO SLEEP. FALL AND SITTER PRECAUTIONS IN PLACE, SITTER IN ROOM AT BEDSIDE. PROGRESSING TOWARDS PLAN OF CARE DC GOALS.
[2020-06-04 10:21] VITALS: BP 133/88
--- NOTE | 2020-06-04 10:33 | NUR ---
Received awake on bed. With sitter at bedside. Pt still having auditory and visual hallucinations; pacing at times; re-orientable, no episodes of agitation noted this AM. Due medications given as prescribed, able to take and swallow meds w/o difficulty, On MS, not on telemetry; no complains and signs of chest pain, crushing sensation and heaviness. Assisted in ADLs. On room air. Vital signs stable. On regular diet- tolerating well; no nausea, no vomiting and no abdominal pain noted. Continent of bowel and bladder, able to go to the toilet with standby assist. With R chest port in place. Still a/w discharge disposition. To continue monitoring patient.
[2020-06-04 17:56] VITALS: BP 130/71
--- NOTE | 2020-06-05 04:49 | NUR ---
Pt. did have periods of pacing in his room at the first of the shift. He listens to music via headphones and will sing outloud at times to the music. Cooperative with care and is easily redirectable. He did rest quietly after po meds given. Sitter at the bedside.
--- NOTE | 2020-06-05 15:07 | NUR ---
Assumed pt care this am, with a sitter . VS stable, very minimal hallucinations. Redirectable, bath taken in the am, no violent behaviour noted. Family would be on face time with the pt for most of hte afternoon. Pt states his time is up in the facility he came from and mentined if we could talk to his field case manager from out side for the other facility they were working on. POC followe with no signs or verbalizations of distress noted.
[2020-06-05 20:17] VITALS: BP 146/78
--- NOTE | 2020-06-06 05:12 | NUR ---
Pt. was very verbally loud at the first of the shift. Singing outloud and at times cursing. He was noted to have some auditory and visual hallucinations. Evening meds were given with relief. He did rest quietly during the night. Sitter at the bedside.
[2020-06-06 08:15] VITALS: BP 132/89
--- NOTE | 2020-06-06 09:23 | NUR ---
PT UP WALKING AROUND IN THE ROOM. PT LISTENING TO DocSend MUSIC ON PHONE. PT PACES AND ALSO WALKS OUT OF ROOM AND NEEDS 1:1 CARE DUE TO ELOPEMENT RISK. PT HAS GOOD EYE CONTACT WITH STAFF. PT TOOK MEDS WITHOUT ANY ISSUES THIS AM, PT DID ACCEPT TO HAVE LACTULOSE. WAITING FOR PT TO GO BACK TO FACILITY. ADM CHLORPROMAZINE 50MG PO FOR RESTLESSNESS. PT ALSO HAD SCHEDUALED LORAZEPAM. PT ALSO LIKES WATCHING WRESTLING ON THE PHONE AND ALSO GOT TO TALK TO MOM VIA [employer]. PT LUNGS CLEAR. NO SIGNS OF PAIN. PT DID MAKE GOOD EYE CONTACT WITH STAFF.
--- NOTE | 2020-06-06 09:40 | NUR ---
VASCULAR ACCESS NURSE ROUNDING TO CHANGE PORT NEEDLE. PORT IS NO LONGER ACCESSED.
--- NOTE | 2020-06-06 12:06 | NUR ---
PT UP PACING ROOM AND SINGING AND TALKING LOUD, PT HAS EAR BUDS IN BILATERLLY. ADM CHLORPROMAZINE 50MG PO PRN ANXIETY AND BEHAVIORAL SYMPTOMS. ALSO ADM BENDADRYL 50MG PO FOR AGITATION. PT ALSO WALKS OUT OF ROOM AND 1:1 FOLLOWS.
--- NOTE | 2020-06-06 12:15 | NUR ---
NOTICED PT LIKES TO GO INTO BATHROOM AND RUNS SINK AND DOESN'T TURN IT OFF. PT IS CONT. OF URINE. PT PACING AROUND UNIT. PT SEEMS CALMER NOW NOT SINGING LOUDLY.
--- NOTE | 2020-06-06 13:00 | NUR ---
PT NOT SHOWING ANY AGGRESSIVE BEHAVIOR. PT JUS PACING AROUND UNIT SINGING. PT IN SHOWER AT THIS TIME. PT HAS NO ISSUES WITH TAKING MEDICATION. PT COMPLIENT WITH MEDS AND REDIRECTABLE.
--- NOTE | 2020-06-06 13:58 | NUR ---
CARE TEAM INDICATED THAT PT IS MEDICALLY STABLE TO DC BACK TO [facility] THIS DAY. UPDATED CLINICAL SENT TO [facility] THIS AM. CM SPOKE WITH CHAPITO ROGEL AND INDICATED THAT PT HAD BEEN CLEARED TO RETURN TO FACILITY NO LONGER NEEDING ACUTE MEDICAL MANAGEMENT. CM INDICATED THAT PT ONLY HAS 1:1 SITTER HE IS ON A MED UNIT AND NEEDS SUPERVISION WHEN HE LEAVES THE ROOM TO AMBULATE OCCASIONALLY. PT IS TO MOVE INTO A SENIOR LIVING 06/20/20. CHAPITO INDICATED THAT HE WOULD BE ABLE TO ACCEPT PT BACK TOMORROW HE HAS TO MOVE SOME RESIDENTS AROUND. CM NOTIFIED CARE TEAM. CM TO ASSIST NEEDED WITH DC BACK TO [facility] TOMORROW.
[2020-06-06 16:15] VITALS: BP 134/79
--- NOTE | 2020-06-06 16:49 | NUR ---
ADM BENADRYL 50MG PO AND CHLORPROMAZINE 50MG PO FOR PACING AND INCREASED ANXIETY.
--- NOTE | 2020-06-06 18:01 | NUR ---
PT SINGING LOUDLY WITH EAR BUDS IN. TOLD PT IF HE DIDN'T LOWER HIS VOICE WE WOULD HAVE TO TAKE EAR BUDS OUT. PT NOW SITTING IN CHAIR AT THIS TIME, QUIETLY.
[2020-06-06 19:09] VITALS: BP 138/88
--- NOTE | 2020-06-07 01:52 | NUR ---
ASSUMED CARE OF PT AT SHIFT CHANGE. PT IS AOX2 AND LETS NEEDS BE KNOWN. 1:[address] PT HAS HALLUCINATIONS AND WAS SINGING AND TALKING IN THE ROOM. PT TOOK ALL HS MEDS WHOLE. PT DENIED PAIN, NAUSEA OR SOA. NO IV ACCESS AT THIS TIME. PT TO BE DISCHARGED IN THE AM. VSS AND NO S/S OF ACUTE DISTRESS. WILL CONTINUE TO MONITOR.
[2020-06-07 07:51] VITALS: BP 120/65
[2020-06-07 09:17] VITALS: BP 120/65
--- NOTE | 2020-06-07 11:49 | NUR ---
ASSUMED PT CARE THIS AM. PT VSS, A&OX4. PATIENT IS COOPERATIVE AND REDIRECTABLE. TOOK MEDS THIS AM WITHOUT ISSUE. PRN THORAZINE GIVEN. PATIENT WITH AUDITORY AND VISUAL HALLUCINATIONS. PATIENT HAS A SITTER IN PLACE. UP AD PIPER AND REMAINS CONTINENT. ON ROOM AIR.
--- NOTE | 2020-06-07 12:35 | NUR ---
CARE TEAM INDICATED THAT PT IS MEDICALLY STABLE TO DC BACK TO [facility] THIS DAY. CM SPOKE WITH DON AT FACILITY THIS AM THEY ARE AWARE AND AGREEABLE TO TAKE HIM BACK TODAY. FACILITY WILL PICK PT UP AT 1300. CM NOTIFIED BEATRIZ MCKEON AT PA'S OFFICE. ORDERS FAXED TO FACILITY AND PA'S OFFICE. CHART COPY MADE. NO OTHER CM INTERVENTION INDICATED. CASE CLOSED. NURSE GIVEN NUMBER FOR REPORT.
--- NOTE | 2020-06-07 13:57 | NUR ---
PT DISCHARGING TODAY TO [facility] FAXED DC ORDERS/SUMMARY TO FACILITY RECEIVED CONFIRMATION AND FAXED DC ORDERS/SUMARY TO PT'S GUARDIAN (BEATRIZ MCKEON) RECEIVED CONFIRMATION.
== END 2020-06-07 15:30 | DRG 558 ==
LOC: ER 14:48 → EROBS 18:31 → 4W 05-21 14:38
PROVIDERS: Emergency Medicine; Hospitalist; Internal Medicine; Psychiatry & Neurology Psychiatry; ADMIT Hospitalist; ATTEND Hospitalist
DX: M62.82 Rhabdomyolysis (principal); F32.3 Major depressive disorder, single episode, severe with psychotic features; R45.851 Suicidal ideations; E72.20 Disorder of urea cycle metabolism, unspecified; E87.2 Acidosis; F23 Brief psychotic disorder; R00.0 Tachycardia, unspecified; J45.909 Unspecified asthma, uncomplicated; K59.00 Constipation, unspecified; R41.0 Disorientation, unspecified; I10 Essential (primary) hypertension; E87.5 Hyperkalemia; Z20.822 Contact with and (suspected) exposure to COVID-19; Z88.0 Allergy status to penicillin; Z88.8 Allergy status to other drugs, medicaments and biological substances; Z28.21 Immunization not carried out because of patient refusal
CPT/HCPCS: 10040